=== PATIENT | male | born 1960 | race Caucasian/White ===

== ENCOUNTER → 2016-08-29 | Day surgery (SDC) | payer OTHER ==
[~2016-08-29] MED LIST: AMLODIPINE BESYL5 MG PO; BENAZEPRIL HCL5 M1 PO
--- NOTE | ~2016-08-29 | OR ---
Unit #: [id number] #: [id number] Patient: BRIAN UPTON [id number] [address] [place], [place] [address] [id number] MR#: [id number] NAME: BRIAN UPTON ROOM: Date of Procedure: 08/29/2016 Admission Date: 08/29/2016 Surgeon: Pablo Jacobson Jr., M.D. : 1960 Attending Physician: Pablo Jacobson Jr., M.D. Primary Care Physician: Primary Care Physician No OPERATIVE REPORT INDICATIONS FOR PROCEDURE The patient is a 56-year-old white male, who recently presented to the office complaining of an incarcerated symptomatic umbilical hernia. It has been there and causing intermittent discomfort and pain and he is brought in this time for reduction and repair of this hernia open. PREOPERATIVE DIAGNOSIS Chronic incarcerated umbilical hernia. POSTOPERATIVE DIAGNOSES Chronic incarcerated umbilical hernia, noting approximately 1 to 1.5 cm defect with incarcerated omental fat within it. ANESTHESIA General with LMA and 0.5% Marcaine with epinephrine locally. PRIMARY CARE NURSE Dr. Bunch. PROCEDURE PERFORMED Reduction and repair of incarcerated umbilical hernia with Ventralex mesh and primary closure of the defect. DESCRIPTION OF PROCEDURE The patient was positioned in supine position. After being anesthetized, he was prepped and draped in routine fashion for repair of his umbilical hernia. A keyhole type incision was made over the superior aspect of the umbilicus and to the right and the left, carried down through the dermis down through the subcutaneous tissue where the hernia itself was encountered. The hernia was removed from the posterior aspect of the dermis of the umbilicus and there was approximately 1.5 cm defect at its base. It was freed up circumferentially and then a small portion of omental fat was then clamped at its base and removed and the base was ligated with 2-0 silk suture. Space was developed under the fascia and a small Ventralex mesh was then placed under the fascia and brought up against the anterior abdominal wall and straps tacked in place with interrupted 0 Ethibond sutures. The straps were then excised flush with the graft. The defect itself was then primarily closed with interrupted 0 Ethibond sutures using modified Jeanmarie-Cornejo type stitches. The wound was irrigated with antibiotic solution. After total hemostasis was noted, the dermis of the umbilicus was tacked to the fascia with 3-0 Vicryl suture and the subcutaneous tissue on the entire area of the wound was Unit #: [id number] #: [id number] Patient: BRIAN UPTON then approximated with interrupted 3-0 Vicryl sutures. Skin edges were approximated with stainless-steel skin clips and skin stapling device. Sterile dressings were applied externally. Estimated blood loss minimal, less than 30 mL. The patient received less than 1000 mL crystalloid solution during the procedure. Sponges and instruments counts were correct x3. No drain was used. No complications. The patient was taken to the recovery room with stable vital signs in satisfactory condition. Dictated by... Pablo Jacobson Jr., MNaye CARTAGENA/angel TD: 08/30/2016 02:07 JOB #: [id number] OPERATIVE REPORT Page 1 of 1 X Pablo Jacobson MD X PROCEDURE OPERATIVE NOTE
--- NOTE | ~2016-08-29 | EKG ---
PATIENT: BRIAN UPTON UNIT #: [id number] Ventricular Rate: 67 BPM Atrial Rate: 67 BPM P-R Interval: 180 ms QRS Duration: 104 ms Q-T Interval: 410 ms QTC Calculation(Bezet): 433 ms P Swifton: 45 degrees Calculated R Swifton: 36 degrees Calculated T Swifton: 28 degrees Diagnosis Line: Normal sinus rhythm Diagnosis Line: Normal ECG Diagnosis Line: No previous ECGs available Diagnosis Line: Confirmed by KENN MELENDEZ MD ([id number]) on 08/29/2016 Diagnosis Line: 4:42:03 PM INTERPRETING MD: NORA LOJA
[2016-08-29 07:43] LABS: BUN/CREATININE RATIO 21.11; CALCIUM SERUM 8.9 mg/dL (8.4-10.2); CREATININE SERUM 0.9 mg/dL (0.6-1.4); GLOM FILT RATE Estimated 95.8 mL/min (>60); POTASSIUM 3.8 mmol/L (3.5-5.1)
== END | disposition home or self-care (01) ==
LOC: CSUR 06:07
PROVIDERS: Surgery
DX: K42.0 Umbilical hernia with obstruction, without gangrene (principal); I10 Essential (primary) hypertension; Z79.899 Other long term (current) drug therapy; Z98.52 Vasectomy status
CPT/HCPCS: 80048; 93005; J0330; J0690; J1100; J1885; J2405; J3010